=== PATIENT | male | born 1970 | race African-American/Black ===

== ENCOUNTER 2019-02-19 16:20 | Emergency (ER) | payer MEDICAID ==
[~2019-02-19] VITALS: Ht 170.2 cm; Wt 68.2 kg
[2019-02-19 16:23] VITALS: BP 143/95
[2019-02-19] MEDS ORDERED: PHENY100 PO (16:28)
[2019-02-19 18:41] LABS: APPEARANCE,URINE CLEAR (CLEAR); BILIRUBIN,URINE NEGATIVE (NEGATIVE); GLUCOSE, URINE (UA) NEGATIVE (NEGATIVE); KETONES,URINE NEGATIVE (NEGATIVE); LEUKOCYTE ESTERASE ,URINE NEGATIVE (NEGATIVE); NITRATE,URINE NEGATIVE (NEGATIVE); OCCULT BLOOD,URINE NEGATIVE (NEGATIVE); PROTEIN,URINE NEGATIVE (NEGATIVE); UROBILINOGEN,URINE 0.2 mg/dL (<=1.0)
[2019-02-19 18:52] LABS: BACTERIA,URINE None Seen /HPF (None Seen); RBC,URINE None Seen /HPF (0-2); SQUAMOUS EPITHELIAL CELL,UR Rare /LPF (None Seen); WBC,URINE None Seen /HPF (0-5)
== END 2019-02-19 20:35 | disposition left against medical advice (07) ==
LOC: EDSEX 16:24 → EMS 16:24
DX: R35.0 Frequency of micturition (principal); Z88.8 Allergy status to other drugs, medicaments and biological substances
CPT/HCPCS: 82948